=== PATIENT | female | born 1975 | race Hispanic/Latino ===

== ENCOUNTER 2016-05-31 18:47 | Emergency (ER) | payer SELFPAY ==
[~2016-05-31] VITALS: Ht 157.5 cm; Wt 45.0 kg
[~2016-05-31 18:47] MED LIST: CIPROFLOXACN500 MG PO; GLYBURIDE5 MG PO; METFORMIN500 MG PO; METFORMIN850 MG PO; PREVACID30 M1 PO; ZOFRAN ODT4 MG PO
[2016-05-31] MEDS ORDERED: CEPHALEXIN500 MG PO (19:21)
[2016-05-31] MEDS ORDERED: METOCLOPRAMIDE10 M1 PO (19:21)
[2016-05-31] MEDS ORDERED: RANITIDINE150 M1 PO (19:21)
[2016-05-31] MEDS ORDERED: GLIPIZIDE10 MG PO (19:22)
[2016-05-31] MEDS ORDERED: METRONIDAZOL250 MG PO (19:22)
[2016-05-31] MEDS ORDERED: LISINOP/HCTZ1 TA1 PO (19:22)
[2016-05-31] MEDS ORDERED: SUCRALFATE1 GM PO (19:23)
[2016-05-31] MEDS ORDERED: METOPROL TAR25 MG PO (19:23)
[2016-05-31 20:49] LABS: HEMATOCRIT 27.4 % (37.0-47.0); HEMOGLOBIN 9.5 g/dl (12.0-16.0); IMMATURE GRANULOCYTES 0.2 % (0.0-1.0); MEAN CELL VOLUME 86.7 fL CALC (80.0-100.0); MEAN CORPUSCULAR HGB 30.1 pG CALC (26.0-32.0); MEAN CORPUSCULAR HGB CONC 34.7 g/L CALC (32.0-36.0); NEUT# 3.52 thou/uL (2.00-7.15); RED BLOOD COUNT 3.16 mill/uL (4.20-5.60); RED CELL DISTRI WIDTH 13.5 % (11.5-15.5)
[2016-05-31 21:33] LABS: ALBUMIN 4.4 g/dL (3.2-5.0); ALKALINE PHOSPHATASE 55 u/l (38-126); AMYLASE 97 u/l (30-110); ANION GAP 15 (6-22 (CALC)); BILIRUBIN, TOTAL 0.5 mg/dL (0.0-1.4); BUN 15 mg/dL (7-17); BUN/CREATININE RATIO 17 (12-20 (CALC)); CARBON DIOXIDE 23 mmol/l (22-30); CHLORIDE 97 mmol/l (95-108); CREATININE 0.9 mg/dL (0.5-1.0); GFR > 60 ML/MIN (>=60 (CALC)); GFR FOR AFR.AMER. > 60 ML/MIN (>=60 (CALC)); GLUCOSE 118 mg/dL (65-105); LIPASE 77 u/l (23-300); POTASSIUM 3.6 mmol/l (3.5-5.1); SGOT/AST 91 u/l (14-36); SGPT/ALT 30 u/l (9-52); SODIUM 132 mmol/l (137-146); TOTAL PROTEIN 7.6 g/dL (6.3-8.2)
[2016-05-31 22:03] LABS: URINE BILIRUBIN - DIPSTICK NEGATIVE (NEGATIVE); URINE BLOOD DIPSTICK NEGATIVE (NEGATIVE); URINE CLARITY CLEAR; URINE COLOR YELLOW; URINE GLUCOSE - DIPSTICK NEGATIVE (NEGATIVE); URINE KETONE NEGATIVE (NEGATIVE); URINE LEUK ESTERASE TRACE (Negative); URINE NITRITE - DIPSTICK NEGATIVE (Negative); URINE PROTEIN - DIPSTICK TRACE mg/dL (NEG-TRACE); URINE UROBILINOGEN - DIPSTICK 0.2 E.U./dL (0.2)
[2016-05-31 23:53] VITALS: BP 165/77
== END 2016-05-31 23:53 | disposition home or self-care (01) | DRG 392 ==
LOC: ED 18:47
PROVIDERS: Emergency Medicine
DX: R10.9 Unspecified abdominal pain (principal); E11.9 Type 2 diabetes mellitus without complications

== ENCOUNTER 2016-06-09 11:43 | Emergency (ER) | payer SELFPAY ==
[~2016-06-09] VITALS: Ht 157.5 cm; Wt 45.0 kg
[~2016-06-09 11:43] MED LIST changes: +CEPHALEXIN500 MG PO; +GLIPIZIDE10 MG PO; +LISINOP/HCTZ1 TA1 PO; +METOCLOPRAMIDE10 M1 PO; +METOPROL TAR25 MG PO; +METRONIDAZOL250 MG PO; +RANITIDINE150 M1 PO; +SUCRALFATE1 GM PO
[2016-06-09 12:58] LABS: URINE BILIRUBIN - DIPSTICK NEGATIVE (NEGATIVE); URINE BLOOD DIPSTICK TRACE-INTACT (NEGATIVE); URINE COLOR YELLOW; URINE GLUCOSE - DIPSTICK 100 mg/dL (NEGATIVE); URINE KETONE NEGATIVE (NEGATIVE); URINE LEUK ESTERASE NEGATIVE (NEGATIVE); URINE NITRITE - DIPSTICK NEGATIVE (Negative); URINE PROTEIN - DIPSTICK TRACE mg/dL (NEG-TRACE); URINE UROBILINOGEN - DIPSTICK 0.2 E.U./dL (0.2)
[2016-06-09 12:59] LABS: HEMATOCRIT 27.4 % (37.0-47.0); HEMOGLOBIN 9.2 g/dl (12.0-16.0); IMMATURE GRANULOCYTES 0.3 % (0.0-1.0); MEAN CELL VOLUME 89.5 fL CALC (80.0-100.0); MEAN CORPUSCULAR HGB 30.1 pG CALC (26.0-32.0); MEAN CORPUSCULAR HGB CONC 33.6 g/L CALC (32.0-36.0); NEUT# 4.66 thou/uL (2.00-7.15); RED BLOOD COUNT 3.06 mill/uL (4.20-5.60); RED CELL DISTRI WIDTH 13.5 % (11.5-15.5)
[2016-06-09 12:59] LABS: URINE CLARITY SLIGHT CLOUDY
[2016-06-09 13:22] LABS: ALBUMIN 4.3 g/dL (3.2-5.0); ALKALINE PHOSPHATASE 60 u/l (38-126); AMYLASE 167 u/l (30-110); ANION GAP 15 (6-22 (CALC)); BILIRUBIN, TOTAL 0.3 mg/dL (0.0-1.4); BUN 13 mg/dL (7-17); BUN/CREATININE RATIO 16 (12-20 (CALC)); CALCIUM 9.8 mg/dL (8.4-10.2); CARBON DIOXIDE 23 mmol/l (22-30); CHLORIDE 102 mmol/l (95-108); CREATININE 0.8 mg/dL (0.5-1.0); GFR > 60 ML/MIN (>=60 (CALC)); GFR FOR AFR.AMER. > 60 ML/MIN (>=60 (CALC)); GLUCOSE 201 mg/dL (65-105); LIPASE 170 u/l (23-300); POTASSIUM 4.6 mmol/l (3.5-5.1); SGOT/AST 20 u/l (14-36); SGPT/ALT 25 u/l (9-52); SODIUM 136 mmol/l (137-146); TOTAL PROTEIN 7.3 g/dL (6.3-8.2)
[2016-06-09 13:34] LABS: MYOGLOBIN 27 ng/mL (0 - 62)
[2016-06-09] MEDS ORDERED: ZOFRAN4 MG/TAB PO (17:13)
[2016-06-09 17:45] VITALS: BP 209/80
== END 2016-06-09 17:45 | disposition home or self-care (01) | DRG 392 ==
LOC: ED 11:43 → EDBD 13:07 → ED 17:45
PROVIDERS: Emergency Medicine
DX: R10.84 Generalized abdominal pain (principal); R11.2 Nausea with vomiting, unspecified
CPT/HCPCS: Q9967

== ENCOUNTER 2016-08-04 16:55 | Emergency (ER) | payer SELFPAY ==
[~2016-08-04] VITALS: Ht 157.5 cm; Wt 50.0 kg
[~2016-08-04 16:55] MED LIST changes: +ZOFRAN4 MG/TAB PO
[2016-08-04 17:38] LABS: HEMOGLOBIN 9.2 g/dl (12.0-16.0); IMMATURE GRANULOCYTES 0.3 % (0.0-1.0); MEAN CELL VOLUME 86.8 fL CALC (80.0-100.0); MEAN CORPUSCULAR HGB 29.6 pG CALC (26.0-32.0); MEAN CORPUSCULAR HGB CONC 34.1 g/L CALC (32.0-36.0); NEUT# 4.12 thou/uL (2.00-7.15); RED BLOOD COUNT 3.11 mill/uL (4.20-5.60); RED CELL DISTRI WIDTH 13.9 % (11.5-15.5)
[2016-08-04 17:54] LABS: ALBUMIN 4.4 g/dL (3.2-5.0); ALKALINE PHOSPHATASE 50 u/l (38-126); AMYLASE 449 u/l (30-110); ANION GAP 16 (6-22 (CALC)); BILIRUBIN, TOTAL 0.3 mg/dL (0.0-1.4); BUN 29 mg/dL (7-17); BUN/CREATININE RATIO 36 (12-20 (CALC)); CALCIUM 9.5 mg/dL (8.4-10.2); CARBON DIOXIDE 26 mmol/l (22-30); CHLORIDE 102 mmol/l (95-108); CREATININE 0.8 mg/dL (0.5-1.0); GFR > 60 ML/MIN (>=60 (CALC)); GFR FOR AFR.AMER. > 60 ML/MIN (>=60 (CALC)); GLUCOSE 139 mg/dL (65-105); LIPASE 111 u/l (23-300); POTASSIUM 3.5 mmol/l (3.5-5.1); SGOT/AST 28 u/l (14-36); SGPT/ALT 34 u/l (9-52); SODIUM 141 mmol/l (137-146); TOTAL PROTEIN 7.2 g/dL (6.3-8.2)
[2016-08-04 18:05] LABS: MYOGLOBIN 21 ng/mL (0 - 62)
[2016-08-04 19:43] LABS: URINE BILIRUBIN - DIPSTICK NEGATIVE (NEGATIVE); URINE BLOOD DIPSTICK NEGATIVE (NEGATIVE); URINE CLARITY CLEAR; URINE COLOR YELLOW; URINE GLUCOSE - DIPSTICK NEGATIVE (NEGATIVE); URINE KETONE NEGATIVE (NEGATIVE); URINE LEUK ESTERASE NEGATIVE (NEGATIVE); URINE NITRITE - DIPSTICK NEGATIVE (Negative); URINE PH 7.5 (4.5-8.0); URINE PROTEIN - DIPSTICK 30 mg/dL (NEG-TRACE); URINE UROBILINOGEN - DIPSTICK 0.2 E.U./dL (0.2)
[2016-08-04 19:44] LABS: URINE RBC 0-2 RBC/hpf (0-5); URINE SQUAMOUS EPITHELIAL CELL FEW EPI/hpf (0-FEW); URINE WBC 0-2 WBC/hpf (0-5)
[2016-08-04] MEDS ORDERED: ZOFRAN ODT4 MG PO (19:53)
[2016-08-04] MEDS ORDERED: ULTRAM50 M1 PO (19:53)
[2016-08-04] MEDS ORDERED: PREVACID30 M1 PO (19:53)
[2016-08-04 20:00] LABS: BARBITURATES NEGATIVE (NEGATIVE); COCAINE NEGATIVE (NEGATIVE); METHADONE NEGATIVE (NEGATIVE); OXCYCODONE NEGATIVE (NEGATIVE); TETRAHYDROCANNABIONOL NEGATIVE (NEGATIVE); TRICYLIC ANTIDEPRESSANTS NEGATIVE (NEGATIVE)
[2016-08-04 20:34] VITALS: BP 188/93
== END 2016-08-04 20:34 | disposition home or self-care (01) | DRG 392 ==
LOC: ED 16:55
PROVIDERS: Emergency Medicine
DX: R10.84 Generalized abdominal pain (principal); F32.9 Major depressive disorder, single episode, unspecified; E11.9 Type 2 diabetes mellitus without complications; F19.10 Other psychoactive substance abuse, uncomplicated
CPT/HCPCS: Q9967

== ENCOUNTER 2016-08-15 22:57 | Emergency (ER) | payer SELFPAY ==
[~2016-08-15] VITALS: Ht 157.5 cm; Wt 70.0 kg
[~2016-08-15 22:57] MED LIST changes: +ULTRAM50 M1 PO
[2016-08-16 01:24] LABS: URINE BILIRUBIN - DIPSTICK NEGATIVE (NEGATIVE); URINE BLOOD DIPSTICK SMALL (NEGATIVE); URINE COLOR YELLOW; URINE GLUCOSE - DIPSTICK NEGATIVE (NEGATIVE); URINE KETONE NEGATIVE (NEGATIVE); URINE LEUK ESTERASE NEGATIVE (NEGATIVE); URINE NITRITE - DIPSTICK NEGATIVE (Negative); URINE PROTEIN - DIPSTICK NEGATIVE (NEG-TRACE); URINE SPECIFIC GRAVITY <=1.005; URINE UROBILINOGEN - DIPSTICK 0.2 E.U./dL (0.2)
[2016-08-16 01:25] LABS: URINE CLARITY SLIGHT CLOUDY
[2016-08-16 01:26] LABS: HEMATOCRIT 25.8 % (37.0-47.0); HEMOGLOBIN 8.7 g/dl (12.0-16.0); IMMATURE GRANULOCYTES 0.5 % (0.0-1.0); MEAN CELL VOLUME 87.8 fL CALC (80.0-100.0); MEAN CORPUSCULAR HGB 29.6 pG CALC (26.0-32.0); MEAN CORPUSCULAR HGB CONC 33.7 g/L CALC (32.0-36.0); NEUT# 10.85 thou/uL (2.00-7.15); RED BLOOD COUNT 2.94 mill/uL (4.20-5.60); RED CELL DISTRI WIDTH 14.8 % (11.5-15.5)
[2016-08-16 01:29] LABS: BARBITURATES NEGATIVE (NEGATIVE); COCAINE NEGATIVE (NEGATIVE); METHADONE NEGATIVE (NEGATIVE); OXCYCODONE NEGATIVE (NEGATIVE); TETRAHYDROCANNABIONOL NEGATIVE (NEGATIVE); TRICYLIC ANTIDEPRESSANTS NEGATIVE (NEGATIVE)
[2016-08-16 01:38] LABS: URINE BACTERIA FEW hpf; URINE RBC 0-2 RBC/hpf (0-5); URINE SQUAMOUS EPITHELIAL CELL FEW EPI/hpf (0-FEW); URINE WBC 0-2 WBC/hpf (0-5)
[2016-08-16 01:52] LABS: ALBUMIN 4.5 g/dL (3.2-5.0); ALKALINE PHOSPHATASE 67 u/l (38-126); ANION GAP 18 (6-22 (CALC)); BILIRUBIN, TOTAL 0.3 mg/dL (0.0-1.4); BUN 22 mg/dL (7-17); BUN/CREATININE RATIO 19 (12-20 (CALC)); CALCIUM 9.4 mg/dL (8.4-10.2); CARBON DIOXIDE 25 mmol/l (22-30); CHLORIDE 94 mmol/l (95-108); CREATININE 1.1 mg/dL (0.5-1.0); GFR 53 ML/MIN (>=60 (CALC)); GFR FOR AFR.AMER. > 60 ML/MIN (>=60 (CALC)); GLUCOSE 58 mg/dL (65-105); POTASSIUM 3.1 mmol/l (3.5-5.1); SGOT/AST 27 u/l (14-36); SGPT/ALT 38 u/l (9-52); SODIUM 134 mmol/l (137-146); TOTAL PROTEIN 7.3 g/dL (6.3-8.2)
[2016-08-16 02:02] LABS: MYOGLOBIN 221 ng/mL (0 - 62)
[2016-08-16 02:34] LABS: INFLUENZA A NONE DETECTED (NONE DETECT); INFLUENZA B NONE DETECTED (NONE DETECT)
[2016-08-16] MEDS ORDERED: K-TAB20 MEQ PO (05:05)
[2016-08-16 05:11] LABS: AMYLASE 107 u/l (30-110); LIPASE 191 u/l (23-300)
[2016-08-16 06:45] VITALS: BP 141/64
== END 2016-08-16 06:45 | disposition home or self-care (01) | DRG 103 ==
LOC: ED 22:57
PROVIDERS: Emergency Medicine
DX: R51 Headache (principal); E87.6 Hypokalemia; B34.9 Viral infection, unspecified; R11.0 Nausea; M79.1 Myalgia
CPT/HCPCS: J1956

== ENCOUNTER 2016-09-04 03:19 | Inpatient (IN) | payer OTHER ==
[~2016-09-04] VITALS: Ht 157.5 cm; Wt 43.0 kg
[~2016-09-04 03:19] MED LIST changes: +K-TAB20 MEQ PO
[2016-09-04] MEDS ORDERED: NIFEDIPINE60 MG PO (03:35)
[2016-09-04 04:15] LABS: URINE BILIRUBIN - DIPSTICK NEGATIVE (NEGATIVE); URINE BLOOD DIPSTICK TRACE-INTACT (NEGATIVE); URINE CLARITY CLEAR; URINE COLOR YELLOW; URINE GLUCOSE - DIPSTICK 250 mg/dL (NEGATIVE); URINE KETONE TRACE mg/dL (NEGATIVE); URINE LEUK ESTERASE TRACE (NEGATIVE); URINE NITRITE - DIPSTICK NEGATIVE (Negative); URINE PROTEIN - DIPSTICK TRACE mg/dL (NEG-TRACE); URINE SPECIFIC GRAVITY <=1.005; URINE UROBILINOGEN - DIPSTICK 0.2 E.U./dL (0.2)
[2016-09-04 04:21] LABS: BARBITURATES NEGATIVE (NEGATIVE); COCAINE NEGATIVE (NEGATIVE); METHADONE NEGATIVE (NEGATIVE); OXCYCODONE NEGATIVE (NEGATIVE); TETRAHYDROCANNABIONOL NEGATIVE (NEGATIVE); TRICYLIC ANTIDEPRESSANTS NEGATIVE (NEGATIVE)
[2016-09-04 04:28] LABS: HEMATOCRIT 24.8 % (37.0-47.0); HEMOGLOBIN 8.5 g/dl (12.0-16.0); IMMATURE GRANULOCYTES 0.8 % (0.0-1.0); MEAN CELL VOLUME 85.8 fL CALC (80.0-100.0); MEAN CORPUSCULAR HGB 29.4 pG CALC (26.0-32.0); MEAN CORPUSCULAR HGB CONC 34.3 g/L CALC (32.0-36.0); NEUT# 9.67 thou/uL (2.00-7.15); RED BLOOD COUNT 2.89 mill/uL (4.20-5.60); RED CELL DISTRI WIDTH 14.2 % (11.5-15.5)
[2016-09-04 04:41] LABS: ALBUMIN 3.6 g/dL (3.2-5.0); ALKALINE PHOSPHATASE 61 u/l (38-126); AMYLASE 158 u/l (30-110); ANION GAP 17 (6-22 (CALC)); BILIRUBIN, TOTAL 0.2 mg/dL (0.0-1.4); BUN 18 mg/dL (7-17); BUN/CREATININE RATIO 21 (12-20 (CALC)); CALCIUM 8.6 mg/dL (8.4-10.2); CARBON DIOXIDE 19 mmol/l (22-30); CHLORIDE 99 mmol/l (95-108); CREATININE 0.9 mg/dL (0.5-1.0); GFR > 60 ML/MIN (>=60 (CALC)); GFR FOR AFR.AMER. > 60 ML/MIN (>=60 (CALC)); GLUCOSE 60 mg/dL (65-105); LIPASE 942 u/l (23-300); POTASSIUM 2.9 mmol/l (3.5-5.1); SGOT/AST 13 u/l (14-36); SGPT/ALT 25 u/l (9-52); SODIUM 132 mmol/l (137-146); TOTAL PROTEIN 6.1 g/dL (6.3-8.2)
[2016-09-04 07:49] VITALS: BP 106/64
[2016-09-04 12:18] VITALS: BP 160/97
[2016-09-04 13:39] LABS: CHOLESTEROL HDL RATIO 4.4 (<4.4 (CALC))
[2016-09-04 14:52] LABS: ANION GAP 14 (6-22 (CALC)); BUN 13 mg/dL (7-17); BUN/CREATININE RATIO 22 (12-20 (CALC)); CALCIUM 8.3 mg/dL (8.4-10.2); CARBON DIOXIDE 20 mmol/l (22-30); CHLORIDE 103 mmol/l (95-108); CREATININE 0.6 mg/dL (0.5-1.0); GFR > 60 ML/MIN (>=60 (CALC)); GFR FOR AFR.AMER. > 60 ML/MIN (>=60 (CALC)); GLUCOSE 77 mg/dL (65-105); POTASSIUM 3.6 mmol/l (3.5-5.1); SODIUM 133 mmol/l (137-146)
[2016-09-04 16:10] VITALS: BP 176/70
[2016-09-04 20:20] VITALS: BP 161/70
[2016-09-05 00:26] VITALS: BP 161/76
[2016-09-05 03:35] VITALS: BP 176/86
[2016-09-05 04:15] VITALS: BP 166/75
[2016-09-05 05:27] LABS: AMYLASE 85 u/l (30-110); ANION GAP 13 (6-22 (CALC)); BUN 9 mg/dL (7-17); BUN/CREATININE RATIO 16 (12-20 (CALC)); CALCIUM 8.1 mg/dL (8.4-10.2); CARBON DIOXIDE 22 mmol/l (22-30); CHLORIDE 100 mmol/l (95-108); CREATININE 0.6 mg/dL (0.5-1.0); GFR > 60 ML/MIN (>=60 (CALC)); GFR FOR AFR.AMER. > 60 ML/MIN (>=60 (CALC)); GLUCOSE 78 mg/dL (65-105); LIPASE 97 u/l (23-300); POTASSIUM 3.4 mmol/l (3.5-5.1); SODIUM 132 mmol/l (137-146)
[2016-09-05 05:32] LABS: HEMATOCRIT 25.6 % (37.0-47.0); HEMOGLOBIN 8.8 g/dl (12.0-16.0); IMMATURE GRANULOCYTES 0.5 % (0.0-1.0); MEAN CELL VOLUME 85.9 fL CALC (80.0-100.0); MEAN CORPUSCULAR HGB 29.5 pG CALC (26.0-32.0); MEAN CORPUSCULAR HGB CONC 34.4 g/L CALC (32.0-36.0); NEUT# 4.6 thou/uL (2.00-7.15); RED BLOOD COUNT 2.98 mill/uL (4.20-5.60); RED CELL DISTRI WIDTH 14.4 % (11.5-15.5)
[2016-09-05 08:09] VITALS: BP 159/93
[2016-09-05 11:07] VITALS: BP 165/74
[2016-09-05 15:03] VITALS: BP 131/83
== END 2016-09-05 18:29 | disposition home or self-care (01) | DRG 439 ==
LOC: ENPENDDIS → ED 03:19 → ED-I 06:40 → ED 06:59 → MS2 07:00
PROVIDERS: Emergency Medicine; Internal Medicine; Nurse Practitioner Family; ADMIT Internal Medicine; ATTEND Internal Medicine
PROC: 0T9B70Z Drainage of Bladder with Drainage Device, Via Natural or Artificial Opening (ICD-10-PCS; principal; 2016-09-04)
DX: K85.90 Acute pancreatitis without necrosis or infection, unspecified (principal); E87.1 Hypo-osmolality and hyponatremia; E46 Unspecified protein-calorie malnutrition; I10 Essential (primary) hypertension; E11.9 Type 2 diabetes mellitus without complications; D63.8 Anemia in other chronic diseases classified elsewhere; Z68.1 Body mass index [BMI] 19.9 or less, adult; F32.9 Major depressive disorder, single episode, unspecified; E87.6 Hypokalemia; R33.9 Retention of urine, unspecified; D25.9 Leiomyoma of uterus, unspecified; Z79.84 Long term (current) use of oral hypoglycemic drugs
CPT/HCPCS: Q9967; S0164

== ENCOUNTER 2016-10-31 00:30 | Observation (INO) | payer SELFPAY ==
[~2016-10-31] VITALS: Ht 147.3 cm; Wt 42.0 kg
[~2016-10-31 00:30] MED LIST changes: +NIFEDIPINE60 MG PO
[2016-10-31] MEDS ORDERED: FOLIC ACID1 MG PO (00:47)
[2016-10-31] MEDS ORDERED: CYPROHEPTAD4 MG PO (00:48)
[2016-10-31] MEDS ORDERED: PROCARDIA XL60 MG PO (00:50)
[2016-10-31] MEDS ORDERED: K-DUR/KLOR-CON20 MEQ PO (00:51)
[2016-10-31 01:57] LABS: HEMATOCRIT 27.2 % (37.0-47.0); HEMOGLOBIN 9.2 g/dl (12.0-16.0); IMMATURE GRANULOCYTES 0.2 % (0.0-1.0); MEAN CELL VOLUME 87.5 fL CALC (80.0-100.0); MEAN CORPUSCULAR HGB 29.6 pG CALC (26.0-32.0); MEAN CORPUSCULAR HGB CONC 33.8 g/L CALC (32.0-36.0); NEUT# 3.63 thou/uL (2.00-7.15); RED BLOOD COUNT 3.11 mill/uL (4.20-5.60); RED CELL DISTRI WIDTH 14.1 % (11.5-15.5)
[2016-10-31 02:06] LABS: ALBUMIN 4.4 g/dL (3.2-5.0); ALKALINE PHOSPHATASE 57 u/l (38-126); AMYLASE 204 u/l (30-110); ANION GAP 20 (6-22 (CALC)); BILIRUBIN, TOTAL 0.7 mg/dL (0.0-1.4); BUN 28 mg/dL (7-17); BUN/CREATININE RATIO 30 (12-20 (CALC)); CALCIUM 9.4 mg/dL (8.4-10.2); CARBON DIOXIDE 20 mmol/l (22-30); CHLORIDE 100 mmol/l (95-108); GFR 59 ML/MIN (>=60 (CALC)); GFR FOR AFR.AMER. > 60 ML/MIN (>=60 (CALC)); GLUCOSE 119 mg/dL (65-105); LIPASE 71 u/l (23-300); POTASSIUM 4.1 mmol/l (3.5-5.1); SGOT/AST 32 u/l (14-36); SGPT/ALT 29 u/l (9-52); SODIUM 136 mmol/l (137-146); TOTAL PROTEIN 7.7 g/dL (6.3-8.2)
[2016-10-31 02:20] LABS: MYOGLOBIN 32 ng/mL (0 - 62)
[2016-10-31 02:35] LABS: URINE BILIRUBIN - DIPSTICK NEGATIVE (NEGATIVE); URINE BLOOD DIPSTICK TRACE-INTACT (NEGATIVE); URINE CLARITY TURBID; URINE COLOR YELLOW; URINE GLUCOSE - DIPSTICK NEGATIVE (NEGATIVE); URINE KETONE NEGATIVE (NEGATIVE); URINE NITRITE - DIPSTICK NEGATIVE (Negative); URINE PH 6.5 (4.5-8.0); URINE PROTEIN - DIPSTICK 30 mg/dL (NEG-TRACE); URINE UROBILINOGEN - DIPSTICK 0.2 E.U./dL (0.2)
[2016-10-31 02:36] LABS: URINE LEUK ESTERASE SMALL (NEGATIVE)
[2016-10-31 02:40] LABS: URINE BACTERIA MANY hpf; URINE RBC 0-2 RBC/hpf (0-5); URINE SQUAMOUS EPITHELIAL CELL MANY EPI/hpf (0-FEW); URINE WBC 20-50 WBC/hpf (0-5)
[2016-10-31 04:30] VITALS: BP 180/101
[2016-10-31 08:56] VITALS: BP 169/92
[2016-10-31 12:15] VITALS: BP 164/96
[2016-10-31] MEDS ORDERED: PROTONIX40 MG PO (13:08)
[2016-10-31] MEDS ORDERED: ZOFRAN ODT4 MG PO (13:08)
[2016-10-31] MEDS ORDERED: AMITRIPTYLIN25 MG PO (13:08)
[2016-10-31] MEDS ORDERED: BACTRIM DS1 TAB PO (13:08)
== END 2016-10-31 13:43 | disposition home or self-care (01) | DRG 392 ==
LOC: ED 00:30 → ED-I 03:36 → ED 03:51 → ICU 03:52
PROVIDERS: ADMIT Internal Medicine; ATTEND Internal Medicine
DX: R10.13 Epigastric pain (principal); N39.0 Urinary tract infection, site not specified; I10 Essential (primary) hypertension; K86.1 Other chronic pancreatitis; E11.9 Type 2 diabetes mellitus without complications; B96.20 Unspecified Escherichia coli [E. coli] as the cause of diseases classified elsewhere; D64.9 Anemia, unspecified; R63.4 Abnormal weight loss; R63.0 Anorexia; R93.8 Abnormal findings on diagnostic imaging of other specified body structures; Z79.84 Long term (current) use of oral hypoglycemic drugs
CPT/HCPCS: Q9967; S0164

== ENCOUNTER 2016-11-04 19:25 | Emergency (ER) | payer SELFPAY ==
[~2016-11-04] VITALS: Ht 147.3 cm; Wt 47.0 kg
[~2016-11-04 19:25] MED LIST changes: +AMITRIPTYLIN25 MG PO; +BACTRIM DS1 TAB PO; +CYPROHEPTAD4 MG PO; +FOLIC ACID1 MG PO; +K-DUR/KLOR-CON20 MEQ PO; +PROCARDIA XL60 MG PO; +PROTONIX40 MG PO
[2016-11-04 20:02] LABS: HEMATOCRIT 25.2 % (37.0-47.0); HEMOGLOBIN 8.7 g/dl (12.0-16.0); IMMATURE GRANULOCYTES 0.1 % (0.0-1.0); MEAN CORPUSCULAR HGB 29.7 pG CALC (26.0-32.0); MEAN CORPUSCULAR HGB CONC 34.5 g/L CALC (32.0-36.0); NEUT# 3.93 thou/uL (2.00-7.15); RED BLOOD COUNT 2.93 mill/uL (4.20-5.60); RED CELL DISTRI WIDTH 13.8 % (11.5-15.5)
[2016-11-04 20:14] LABS: ALBUMIN 4.1 g/dL (3.2-5.0); ALKALINE PHOSPHATASE 49 u/l (38-126); AMYLASE 94 u/l (30-110); ANION GAP 18 (6-22 (CALC)); BILIRUBIN, TOTAL 0.4 mg/dL (0.0-1.4); BUN 21 mg/dL (7-17); BUN/CREATININE RATIO 19 (12-20 (CALC)); CALCIUM 9.3 mg/dL (8.4-10.2); CARBON DIOXIDE 24 mmol/l (22-30); CHLORIDE 92 mmol/l (95-108); CREATININE 1.1 mg/dL (0.5-1.0); GFR 53 ML/MIN (>=60 (CALC)); GFR FOR AFR.AMER. > 60 ML/MIN (>=60 (CALC)); GLUCOSE 104 mg/dL (65-105); LIPASE 192 u/l (23-300); POTASSIUM 3.6 mmol/l (3.5-5.1); SGOT/AST 18 u/l (14-36); SGPT/ALT 23 u/l (9-52); SODIUM 131 mmol/l (137-146); TOTAL PROTEIN 6.8 g/dL (6.3-8.2)
[2016-11-04 20:27] LABS: MYOGLOBIN 29 ng/mL (0 - 62)
[2016-11-04 22:17] LABS: URINE BILIRUBIN - DIPSTICK NEGATIVE (NEGATIVE); URINE BLOOD DIPSTICK SMALL (NEGATIVE); URINE CLARITY SLIGHT CLOUDY; URINE COLOR YELLOW; URINE GLUCOSE - DIPSTICK NEGATIVE (NEGATIVE); URINE KETONE NEGATIVE (NEGATIVE); URINE LEUK ESTERASE LARGE (NEGATIVE); URINE NITRITE - DIPSTICK POSITIVE (Negative); URINE PROTEIN - DIPSTICK NEGATIVE (NEG-TRACE); URINE UROBILINOGEN - DIPSTICK 0.2 E.U./dL (0.2)
[2016-11-04 22:23] LABS: URINE BACTERIA MODERATE hpf; URINE SQUAMOUS EPITHELIAL CELL FEW EPI/hpf (0-FEW); URINE WBC 20-50 WBC/hpf (0-5)
[2016-11-05] MEDS ORDERED: REGLAN10 MG PO (00:17)
[2016-11-05 00:35] VITALS: BP 172/86
== END 2016-11-05 00:35 | disposition home or self-care (01) | DRG 690 ==
LOC: ED 19:25
PROVIDERS: Emergency Medicine
DX: N39.0 Urinary tract infection, site not specified (principal); B96.20 Unspecified Escherichia coli [E. coli] as the cause of diseases classified elsewhere; R51 Headache; R11.2 Nausea with vomiting, unspecified; R53.1 Weakness; R94.31 Abnormal electrocardiogram [ECG] [EKG]
CPT/HCPCS: J1956; Q9967; S0164

== ENCOUNTER 2016-11-05 05:14 | Emergency (ER) | payer SELFPAY ==
[~2016-11-05] VITALS: Ht 147.3 cm; Wt 41.2 kg
[~2016-11-05 05:14] MED LIST changes: +REGLAN10 MG PO
[2016-11-05 06:05] VITALS: BP 152/95
== END 2016-11-05 06:05 | disposition left against medical advice (07) | DRG 951 ==
LOC: ED 05:14 → LWOBS 06:05
DX: Z91.19 Patient's noncompliance with other medical treatment and regimen (principal)

== ENCOUNTER 2016-12-18 13:24 | Emergency (ER) | payer SELFPAY ==
[~2016-12-18] VITALS: Ht 147.3 cm; Wt 65.0 kg
[2016-12-18 14:45] LABS: URINE BILIRUBIN - DIPSTICK NEGATIVE (NEGATIVE); URINE BLOOD DIPSTICK TRACE-INTACT (NEGATIVE); URINE COLOR YELLOW; URINE GLUCOSE - DIPSTICK NEGATIVE (NEGATIVE); URINE KETONE NEGATIVE (NEGATIVE); URINE LEUK ESTERASE MODERATE (Negative); URINE NITRITE - DIPSTICK NEGATIVE (Negative); URINE PROTEIN - DIPSTICK 100 mg/dL (NEG-TRACE); URINE SPECIFIC GRAVITY >=1.030; URINE UROBILINOGEN - DIPSTICK 0.2 E.U./dL (0.2)
[2016-12-18 15:21] LABS: HEMATOCRIT 24.4 % (37.0-47.0); HEMOGLOBIN 8.1 g/dl (12.0-16.0); IMMATURE GRANULOCYTES 0.3 % (0.0-1.0); MEAN CELL VOLUME 89.1 fL CALC (80.0-100.0); MEAN CORPUSCULAR HGB 29.6 pG CALC (26.0-32.0); MEAN CORPUSCULAR HGB CONC 33.2 g/L CALC (32.0-36.0); NEUT# 4.62 thou/uL (2.00-7.15); RED BLOOD COUNT 2.74 mill/uL (4.20-5.60); RED CELL DISTRI WIDTH 14.1 % (11.5-15.5)
[2016-12-18 15:26] LABS: ALBUMIN 4.2 g/dL (3.2-5.0); ALKALINE PHOSPHATASE 53 u/l (38-126); ANION GAP 17 (6-22 (CALC)); BILIRUBIN, TOTAL 0.4 mg/dL (0.0-1.4); BUN 41 mg/dL (7-17); BUN/CREATININE RATIO 31 (12-20 (CALC)); CALCIUM 9.3 mg/dL (8.4-10.2); CARBON DIOXIDE 23 mmol/l (22-30); CHLORIDE 101 mmol/l (95-108); CREATININE 1.3 mg/dL (0.5-1.0); GFR 44 ML/MIN (>=60 (CALC)); GFR FOR AFR.AMER. 53 ML/MIN (>=60 (CALC)); GLUCOSE 128 mg/dL (65-105); LIPASE 111 u/l (23-300); POTASSIUM 4.1 mmol/l (3.5-5.1); SGOT/AST 24 u/l (14-36); SGPT/ALT 39 u/l (9-52); SODIUM 137 mmol/l (137-146); TOTAL PROTEIN 7.1 g/dL (6.3-8.2)
[2016-12-18 15:35] LABS: URINE CLARITY CLOUDY
[2016-12-18 16:00] LABS: URINE BACTERIA FEW hpf; URINE SQUAMOUS EPITHELIAL CELL FEW EPI/hpf (0-FEW); URINE WBC 20-50 WBC/hpf (0-5)
[2016-12-18 19:19] LABS: BARBITURATES NEGATIVE (NEGATIVE); COCAINE NEGATIVE (NEGATIVE); METHADONE NEGATIVE (NEGATIVE); OXCYCODONE NEGATIVE (NEGATIVE); TETRAHYDROCANNABIONOL NEGATIVE (NEGATIVE); TRICYLIC ANTIDEPRESSANTS NEGATIVE (NEGATIVE)
[2016-12-18] MEDS ORDERED: PHENERGAN25 M1 PR (20:08)
[2016-12-18] MEDS ORDERED: MACROBID100 MG PO (20:08)
[2016-12-18 20:38] VITALS: BP 178/73
== END 2016-12-18 20:37 | disposition home or self-care (01) | DRG 641 ==
LOC: ED 13:24
PROVIDERS: Emergency Medicine
DX: E86.0 Dehydration (principal); N28.9 Disorder of kidney and ureter, unspecified; I10 Essential (primary) hypertension; N39.0 Urinary tract infection, site not specified; N20.0 Calculus of kidney; R10.32 Left lower quadrant pain; R11.10 Vomiting, unspecified

== ENCOUNTER 2016-12-23 20:34 | Emergency (ER) | payer SELFPAY ==
[~2016-12-23] VITALS: Ht 147.3 cm; Wt 42.6 kg
[~2016-12-23 20:34] MED LIST changes: +MACROBID100 MG PO; +PHENERGAN25 M1 PR
[2016-12-23 20:38] VITALS: BP 143/87
== END 2016-12-23 20:48 | disposition left against medical advice (07) | DRG 951 ==
LOC: ED 20:34 → LWOBS 20:48
DX: Z91.19 Patient's noncompliance with other medical treatment and regimen (principal)